=== PATIENT | female | born 2000 | race Caucasian/White ===

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

== ENCOUNTER 2020-09-26 17:49 | Emergency (ER) | payer OTHER ==
[~2020-09-26] VITALS: Ht 170.1 cm; Wt 98.0 kg
[~2020-09-26 17:49] MED LIST changes: +BLOOD PRESSURE; +LABETALOL HYDR200 MG PO
[2020-09-26 18:20] LABS: BILIRUBIN Negative (Negative); BLOOD Negative (Negative); CLARITY Cloudy (Clear); COLOR Yellow (Yellow); GLUCOSE Negative (Negative); KETONE Negative (Negative); LEUKO ESTERASE 1+ (Negative); NITRITE Negative (Negative); SPECIFIC GRAVITY 1.015 (1.001-1.030); UROBILINOGEN 0.2 E.U./dl (0.0-1.0)
[2020-09-26 18:26] LABS: BACTERIA 2+; MUCOUS TRACE; RBC 0-2 rbc/hpf (0-2)
[2020-09-26] MEDS ORDERED: CLINDAMYCIN PHO40 GM V (18:32)
== END 2020-09-26 18:32 | disposition home or self-care (01) ==
LOC: ED 17:49
PROVIDERS: Emergency Medicine
DX: N76.0 Acute vaginitis (principal); B96.89 Other specified bacterial agents as the cause of diseases classified elsewhere; Z91.040 Latex allergy status; Z79.899 Other long term (current) drug therapy

== ENCOUNTER 2021-05-18 01:48 | Emergency (ER) | payer SELFPAY ==
[~2021-05-18] VITALS: Ht 172.7 cm; Wt 95.7 kg
[~2021-05-18 01:48] MED LIST changes: +CLINDAMYCIN PHO40 GM V
== END 2021-05-18 03:53 | disposition home or self-care (01) ==
LOC: ED 01:48
DX: G43.909 Migraine, unspecified, not intractable, without status migrainosus (principal); Z91.040 Latex allergy status

== ENCOUNTER 2021-05-19 21:17 | Emergency (ER) | payer SELFPAY ==
[~2021-05-19] VITALS: Ht 172.7 cm; Wt 93.9 kg
[2021-05-19 22:31] LABS: BILIRUBIN Negative (Negative); BLOOD Trace-Intact (Negative); CLARITY Clear (Clear); COLOR Yellow (Yellow); GLUCOSE Negative (Negative); KETONE Negative (Negative); LEUKO ESTERASE Negative (Negative); NITRITE Negative (Negative); SPECIFIC GRAVITY 1.025 (1.001-1.030); UROBILINOGEN 0.2 E.U./dl (0.0-1.0)
[2021-05-19 22:43] LABS: EPITHELIAL CELLS 21-30
[2021-05-19 22:44] LABS: BACTERIA 1+
== END 2021-05-19 23:23 | disposition home or self-care (01) ==
LOC: ED 21:17
PROVIDERS: Internal Medicine
DX: N89.8 Other specified noninflammatory disorders of vagina (principal); Z30.431 Encounter for routine checking of intrauterine contraceptive device; Z91.040 Latex allergy status

== ENCOUNTER 2021-06-18 19:01 | Emergency (ER) | payer SELFPAY ==
[~2021-06-18] VITALS: Ht 172.7 cm; Wt 96.2 kg
== END 2021-06-18 20:20 | disposition home or self-care (01) ==
LOC: ED 19:01
DX: Z20.822 Contact with and (suspected) exposure to COVID-19 (principal)

== ENCOUNTER 2021-08-05 16:21 | Emergency (ER) | payer OTHER ==
[~2021-08-05] VITALS: Wt 95.3 kg
[2021-08-05 17:31] LABS: BILIRUBIN Negative (Negative); BLOOD Trace-Lysed (Negative); CLARITY Clear (Clear); COLOR Yellow (Yellow); GLUCOSE Negative (Negative); KETONE Negative (Negative); LEUKO ESTERASE Negative (Negative); NITRITE Negative (Negative); UROBILINOGEN 0.2 E.U./dl (0.0-1.0)
[2021-08-05 17:37] LABS: BACTERIA 1+; MUCOUS 1+
[2021-08-05 17:49] LABS: BASO % 0.4 % (0.0-1.0); EOS # 0.1 10*3/uL (0.0-0.4); EOS % 1.8 % (1.0-4.0); LYMPH # 2.4 10*3/uL (1.3-4.4); MEAN CELL VOLUME 85.1 fl (81.0-99.0); MEAN CORPUSCULAR HGB 28.4 pg (27.0-31.0); MEAN CORPUSCULAR HGB CONC 33.4 g/dl (33.0-37.0); MEAN PLATELET VOLUME 10.9 fl (9.6-12.3); MONO # 0.5 10*3/uL (0.1-1.0); MONO % 7.7 % (3.0-9.0); NEUT # 3.6 10*3/uL (2.3-7.9); NEUT % 53.8 % (47.0-73.0); PLATELET COUNT AUTOMATED 230 10*3/uL (130-400); RED BLOOD COUNT 4.82 10*6/uL (4.10-5.10); RED CELL DISTRI WIDTH 12.2 % (0-14.5); WHITE BLOOD COUNT 6.8 10*3/uL (4.8-10.8)
[2021-08-05 18:04] LABS: ALBUMIN 3.6 gm/dl (3.1-4.5); ALKALINE PHOSPHATASE 101 U/L (45-117); BUN 16 mg/dl (7-24); CHLORIDE 110 mmol/L (98-107); POTASSIUM 3.9 mmol/L (3.5-5.1); SGOT/AST 9 IU/L (3-35); SGPT/ALT 20 U/L (12-78); SODIUM 141 mmol/L (136-145); TOTAL PROTEIN 7.4 gm/dL (6.4-8.2)
== END 2021-08-05 19:01 | disposition home or self-care (01) ==
LOC: ED 16:21
PROVIDERS: Emergency Medicine
DX: N93.8 Other specified abnormal uterine and vaginal bleeding (principal); I10 Essential (primary) hypertension; G43.909 Migraine, unspecified, not intractable, without status migrainosus; Z91.040 Latex allergy status

== ENCOUNTER 2021-09-10 12:20 | Emergency (ER) | payer OTHER ==
[~2021-09-10] VITALS: Ht 170.1 cm; Wt 94.3 kg
[2021-09-10 12:43] LABS: BILIRUBIN Negative (Negative); BLOOD Negative (Negative); CLARITY Clear (Clear); COLOR Yellow (Yellow); GLUCOSE Negative (Negative); KETONE Trace (Negative); LEUKO ESTERASE 1+ (Negative); NITRITE Negative (Negative); SPECIFIC GRAVITY 1.025 (1.001-1.030)
[2021-09-10 12:57] LABS: EPITHELIAL CELLS 16-20; MUCOUS 1+; RBC 0-2 rbc/hpf (0-2); WBC 21-30 wbc/hpf (0-5)
[2021-09-10] MEDS ORDERED: PREDNISONE20 M1 PO (12:57)
[2021-09-10] MEDS ORDERED: METHOCARBAMOL500 M1 PO (12:57)
== END 2021-09-10 14:15 | disposition home or self-care (01) ==
LOC: ED 12:20
PROVIDERS: Physician Assistant
DX: M54.41 Lumbago with sciatica, right side (principal); Z91.040 Latex allergy status

== ENCOUNTER 2021-09-11 13:36 | Emergency (ER) | payer OTHER ==
[~2021-09-11] VITALS: Ht 172.7 cm; Wt 94.3 kg
[~2021-09-11 13:36] MED LIST changes: +METHOCARBAMOL500 M1 PO; +PREDNISONE20 M1 PO
== END 2021-09-11 14:50 | disposition home or self-care (01) ==
LOC: ED 13:36
DX: R22.0 Localized swelling, mass and lump, head (principal); T38.0X5A Adverse effect of glucocorticoids and synthetic analogues, initial encounter; T42.8X5A Adverse effect of antiparkinsonism drugs and other central muscle-tone depressants, initial encounter; Z91.040 Latex allergy status; Y92.89 Other specified places as the place of occurrence of the external cause

== ENCOUNTER 2021-09-16 07:40 | Emergency (ER) | payer OTHER ==
[~2021-09-16] VITALS: Wt 94.3 kg
[2021-09-16 08:28] LABS: BILIRUBIN Negative (Negative); BLOOD 2+ (Negative); CLARITY Cloudy (Clear); COLOR Yellow (Yellow); GLUCOSE Negative (Negative); KETONE Trace (Negative); LEUKO ESTERASE 2+ (Negative); NITRITE Negative (Negative); PH 6.5 (4.5-8.0); SPECIFIC GRAVITY >= 1.030 (1.001-1.030)
[2021-09-16 08:30] LABS: BASO % 0.3 % (0.0-1.0); EOS # 0.1 10*3/uL (0.0-0.4); EOS % 0.5 % (1.0-4.0); LYMPH # 2.1 10*3/uL (1.3-4.4); LYMPH % 16.6 % (27.0-41.0); MEAN CELL VOLUME 83.9 fl (81.0-99.0); MEAN CORPUSCULAR HGB 28.3 pg (27.0-31.0); MEAN CORPUSCULAR HGB CONC 33.7 g/dl (33.0-37.0); MEAN PLATELET VOLUME 10.4 fl (9.6-12.3); MONO # 1.1 10*3/uL (0.1-1.0); MONO % 8.7 % (3.0-9.0); NEUT # 9.3 10*3/uL (2.3-7.9); PLATELET COUNT AUTOMATED 269 10*3/uL (130-400); RED BLOOD COUNT 4.53 10*6/uL (4.10-5.10); RED CELL DISTRI WIDTH 12.7 % (0-14.5); WHITE BLOOD COUNT 12.8 10*3/uL (4.8-10.8)
[2021-09-16 08:41] LABS: BUN 17 mg/dl (7-24); CHLORIDE 106 mmol/L (98-107); CREATININE 0.91 mg/dL (0.55-1.02); POTASSIUM 4.2 mmol/L (3.5-5.1); SODIUM 136 mmol/L (136-145)
[2021-09-16 09:28] LABS: BACTERIA 3+; EPITHELIAL CELLS 16-20; MUCOUS 1+; RBC 16-20 rbc/hpf (0-2); WBC 31-40 wbc/hpf (0-5)
[2021-09-16] MEDS ORDERED: MACROBID100 M1 PO (09:35)
== END 2021-09-16 09:55 | disposition home or self-care (01) ==
LOC: ED 07:40
PROVIDERS: Internal Medicine
DX: N39.0 Urinary tract infection, site not specified (principal); Z91.040 Latex allergy status; Z88.8 Allergy status to other drugs, medicaments and biological substances

== ENCOUNTER 2021-12-04 13:20 | Emergency (ER) | payer OTHER ==
[~2021-12-04] VITALS: Ht 172.7 cm; Wt 96.2 kg
[~2021-12-04 13:20] MED LIST changes: +MACROBID100 M1 PO
== END 2021-12-04 15:51 | disposition left against medical advice (07) ==
LOC: ED 13:20
DX: Z53.21 Procedure and treatment not carried out due to patient leaving prior to being seen by health care provider (principal)